=== PATIENT | male | born 1960 | race Caucasian/White ===

== ENCOUNTER 2019-04-03 08:24 | Day surgery (SDC) | payer OTHER ==
[2019-03-28 10:22] VITALS: BMI 30.5
[2019-04-03] MEDS ORDERED: oxyCODONE HCL 10 MG SUSTAINED ACTING TABLET PO STA (08:45)
[2019-04-03] MEDS ORDERED: CEFAZOLIN 2 GM in DEXTROSE 5%-WATER - 100 ML IVPB ONE (08:45)
[2019-04-03] MEDS ORDERED: ONDANSETRON 4 MG/2 ML VIAL IVPUSH PRN ×2 (09:21→14:44)
[2019-04-03] MEDS ORDERED: oxyCODONE HCL 5 MG TABLET PO PRN (09:21)
[2019-04-03] MEDS ORDERED: LACTATED RINGERS SOLUTION 1,000 ML IV SCH ×2 (09:30→14:45)
[2019-04-03] MEDS ORDERED: DEXAMETHASONE SOD PHOSPHATE 4 MG/1 ML VIAL ONE (10:02)
[2019-04-03] MEDS ORDERED: ONDANSETRON 4 MG/2 ML VIAL ONE ×3 (10:02→14:30)
[2019-04-03] MEDS ORDERED: PROPOFOL 20 ML ONE ×5 (10:02→13:03)
[2019-04-03] MEDS ORDERED: SODIUM CHLORIDE 0.9% P/F 10 ML VIAL IJ ONE (10:02)
[2019-04-03] MEDS ORDERED: SUCCINYLCHOLINE CHLORIDE 200 MG/10 ML SYRINGE ONE (10:02)
[2019-04-03] MEDS ORDERED: MIDAZOLAM HCL 2 MG/2 ML SINGLE DOSE VIAL ONE (10:03)
[2019-04-03] MEDS ORDERED: BUPIVACAINE HCL/PF 0.5% (5 MG/ML) 30 ML VIAL IJ ONE (10:03)
[2019-04-03] MEDS ORDERED: GUM MASTIC/STORAX/MSAL/ALCOHOL 1 DRP DROPSBTL MC ONE (11:12)
[2019-04-03] MEDS ORDERED: LIDOCAINE 1%/EPI 1:100000 (20 ML MULTI DOSE VIAL) ONE (11:12)
[2019-04-03] MEDS ORDERED: EPHEDRINE SULFATE/0.9% NACL/PF 50 MG/10 ML SYRINGE NR ONE (11:55)
[2019-04-03] MEDS ORDERED: LIDOCAINE 1%/EPI 1:100000 (20 ML MULTI DOSE VIAL) INF ONE (12:11)
[2019-04-03] MEDS ORDERED: ACETAMINOPHEN INJECTION 100 ML IVPB ONE (13:47)
--- NOTE | 2019-04-03 14:06 | OP ---
DATE OF OPERATION: 04/03/2019 PREOPERATIVE DIAGNOSIS: Cervical stenosis C3-4, C4-5. POSTOPERATIVE DIAGNOSIS: Cervical stenosis C3-4, C4-5. PROCEDURE PERFORMED: 1. Anterior cervical diskectomy and fusion C3-4, anterior cervical diskectomy and fusion C4-5. 2. Placement of instrumentation C3, C4, C5. SURGEON: Willem Marques MD CONSULTING PROJECT DIRECTOR: JENNY Flores ESTIMATED BLOOD LOSS: 50 mL. INTRAVENOUS FLUIDS: Per anesthesia. ANESTHESIA: General/MCP block. COMPLICATIONS: There were none. DISPOSITION: Patient was brought out to the PACU in stable condition. INDICATION FOR SURGERY: Patient is a 59-year-old gentleman who has been suffering from pain from his neck down his arm. X-rays and MRI were completed, which noted that he had herniated disk at C3-4 and C4-5. He had gone through an exhaustive course of treatment for this, which included medications, physical therapy as well as injections. Unfortunately, his pain continued to persist despite all of this. At this point, risks, benefits, and alternatives were discussed, and the patient consented to surgery. DESCRIPTION OF PROCEDURE: Patient was brought to the operating room by anesthesia staff. After appropriate patient identification was performed, general anesthesia was given. MCP block was also given. Patient was placed supine on the OR bed with his arms tucked to the sides. All areas of bony prominences were well-padded at this time. Two needles were placed onto his neck to gilberto off the C3-4 level. X-ray was taken to confirm this was correct. Needle was removed, and 10 mL of lidocaine with epinephrine was injected into his neck at this time. His neck was prepped and draped in a sterile fashion. At this point, a time-out was completed. A 2-inch incision was made on the left side of his neck. Dissection was carried down to the platysma. The platysma was cut in line with the skin incision. Next, the interval between the sternocleidomastoid and strap muscles was developed. Next, the interval between the carotid sheath and trachea and esophagus was developed. Peanuts were used to elevate off the prevertebral fascia. A needle was placed into the C4-5 disk. X-ray was taken to confirm this was correct. Needle was removed, and a Trenton pin was placed into the body of C3 and C5. A knife was used to incise the disks, and distraction was applied. Longus colli muscles were elevated off and retractor blades were placed in. A microscope was brought in. Using a series of pituitaries, Kerrisons, and curettes, a diskectomy was completed. Endplates were decorticated at this time. Cages filled with bone graft were placed into C3-4 and C4-5. A screw was placed into the body of C3, C4, and C5. Trenton pins were removed. AP and lateral x-rays confirmed the instrumentation to be in good position. Final tightening was performed. The platysma was closed with 2-0 Vicryl suture. The skin was closed with 3-0 Monocryl suture. Dermabond was applied. Steri-Strips were applied. A sterile dressing was applied. Patient was placed supine on the OR bed, extubated in the OR, and brought to the PACU in stable condition. Sanchez BARNARD/[id number] MTDD
[2019-04-03] MEDS ORDERED: ACETAMINOPHEN 1000 MG/100 ML VIAL (NON FORMULARY) IVPB ONE (14:30)
[2019-04-03] MEDS ORDERED: diazePAM 5 MG TABLET PO ONE ×2 (14:56→17:46)
[2019-04-03] MEDS ORDERED: oxyCODONE HCL 5 MG TABLET ONE (14:56)
--- NOTE | 2019-04-03 15:03 | OP ---
Operative Note - Note: Operative Date: 04/03/19 Pre-Operative Diagnosis: cervcial stenosis Operation: anterior cervical disecotmy fusion of C3-4 and C4-5 with neuromonitoing and allograft Surgeon: Willem Marques Chopped Strand Operator: Viola Sales Anesthesiologist/BOND ANALYST: Camille Guzman Anesthesia: General Estimated Blood Loss (mls): 10 Operative Report Dictated: Yes
--- NOTE | 2019-04-03 15:25 | SURG ---
Surgery Supervisor [employer]rication And Assembly Note Supervisor Fabrication And Assembly: Viola Sales PA-C Date of Service: 04/03/19 Diagnosis: cervcial stenosis Procedure: anterior cervical disecotmy fusion of C3-4 and C4-5 with neuromonitoing and allograft I was present for the entirety of the operative procedure. For further detail, please refer to operative report. Visit type - Case Type Case Type: Scheduled - Emergency Emergency Visit: No - New patient This patient is new to me today: Yes Date on this admission: 04/03/19
[2019-04-03] MEDS: INSULIN SLIDING SCALE (NOVOLOG) 1 VIAL SQ SCH ×2 (16:30→23:21)
[2019-04-03] MEDS: DOCUSATE SODIUM 100 MG CAPSULE (FP) PO SCH (21:01)
[2019-04-03] MEDS: DEXAMETHASONE SOD PHOSPHATE 4 MG/1 ML VIAL IVPUSH SCH (21:01)
[2019-04-03] MEDS: CEFAZOLIN 1 GM/D5W 1 GRAM/50 ML BAG IVPB SCH (21:01)
[2019-04-03] MEDS: ACETAMINOPHEN 325 MG TABLET (FP) PO SCH (21:02)
[2019-04-03] MEDS: oxyCODONE HCL 5 MG TABLET PO PRN (21:02)
[2019-04-03] MEDS ORDERED: metFORMIN HCL 500 MG TABLET (FP) PO SCH (22:00)
[2019-04-04] MEDS: DEXAMETHASONE SOD PHOSPHATE 4 MG/1 ML VIAL IVPUSH SCH (03:15)
[2019-04-04] MEDS: CEFAZOLIN 1 GM/D5W 1 GRAM/50 ML BAG IVPB SCH (03:15)
[2019-04-04] MEDS: ACETAMINOPHEN 325 MG TABLET (FP) PO SCH ×2 (03:20→08:15)
[2019-04-04] MEDS: oxyCODONE HCL 5 MG TABLET PO PRN ×2 (03:21→09:19)
[2019-04-04] MEDS: diazePAM 2 MG TABLET PO PRN ×2 (03:23→09:19)
[2019-04-04 06:17] VITALS: BP 112/67; PULSE 81; TEMP 98.7
[2019-04-04] MEDS: INSULIN SLIDING SCALE (NOVOLOG) 1 VIAL SQ SCH (06:46)
[2019-04-04] MEDS ORDERED: sitaGLIPtin PHOSPHATE 50 MG TABLET PO SCH (07:00)
--- NOTE | 2019-04-04 07:54 | PN ---
Progress Note (short form) - Note Progress Note: POD 1, s/p anterior cervical discectomy fusion of C3-4 and C4-5 with neuromonitoring and allograft Pt seen and examined. Reports no issues overnight. Has been oob to the restroom. Tolerating PO, no n/v. Voiding without issue. denies cp/sob, motor/ sensory deficits, h/a, dizziness. Vital Signs Temp 98.7 F 04/04/19 06:00 Pulse 81 04/04/19 06:00 Resp 18 04/04/19 06:00 BP 112/67 04/04/19 06:00 Pulse Ox 96 04/04/19 06:00 Intake & Output 04/03/19 04/03/19 04/04/19 11:59 23:59 11:59 Intake Total 1675 900 Output Total 10 Balance 1665 900 Weight 195 lb Intake: IV 1325 450 Lactated Ringers Solution 375 1,000 ml @ 125 mls/hr IV ASDIR MAY Rx#: [id number] Lactated Ringers Solution 450 1,000 ml @ 75 mls/hr IV ASDIR MAY Rx#:[id number] IVPB 100 Oral 350 350 Output: Estimated Blood Loss 10 Other: Voiding Method Urinal # Unmeasured Voids Void 400 Height 5 ft 7 in Body Mass Index (BMI) 30.5 Weight Measurement Method Stated by Patient Gen: awake, alert, nad. Resp: unlabored on RA Neck: soft collar in place, removed, dressing c/d/i, trace surrounding edema, no ecchymosis. Pt speaking in full sentences without any issues. Neuro: B/L UE tracer lathe set up operator strength weak R>L (stable from prior to surgery per pt), 4+/ 5 biceps/triceps, shoulder shrug intact. Sensation diminished in b/l hands ( stable from prior to surgery per pt), sensation intact in b/l forearms/upper extremities. A/P: 59 y/o M w/ PMHx htn, hld, IDDM (on insulin pump), cervical stenosis, now POD 1, s/p anterior cervical discectomy fusion of C3-4 and C4-5 with neuromonitoring and allograft. VSS Neuro exam stable Pain controlled -Plan for d/c this AM -D/c instructions reviewed with pt, pt verbalized understanding d/w attending Dr Marques
[2019-04-04] MEDS: DOCUSATE SODIUM 100 MG CAPSULE (FP) PO SCH (09:19)
[2019-04-04] MEDS ORDERED: LISINOPRIL 5 MG TABLET (FP) PO SCH (10:00)
[2019-04-04] MEDS ORDERED: PATIENT'S OWN MEDICATION (NON-FORMULARY) (Pravastatin Sodium 20 MG) PO SCH (10:00)
[2019-04-04] MEDS ORDERED: ATORVASTATIN CA 10 MG TABLET (FP) PO SCH (10:00)
== END 2019-04-04 10:55 | disposition home or self-care (01) ==
LOC: FASU 08:24 → FM/S 15:27 → FASU 04-04 10:55
PROVIDERS: ATTEND Orthopaedic Surgery Orthopaedic Surgery of the Spine
PROC: 0RG10A0 Fusion of Cervical Vertebral Joint with Interbody Fusion Device, Anterior Approach, Anterior Column, Open Approach (ICD-10-PCS; 2019-04-03)
PROC: 0RG10K0 Fusion of Cervical Vertebral Joint with Nonautologous Tissue Substitute, Anterior Approach, Anterior Column, Open Approach (ICD-10-PCS; 2019-04-03)
PROC: 0RB30ZZ Excision of Cervical Vertebral Disc, Open Approach (ICD-10-PCS; principal; 2019-04-03 12:25)
DX: M48.02 Spinal stenosis, cervical region (principal)
CPT/HCPCS: 22551; 22552; 22845; 22853; C1889; 72050-TC-FY; 82962; 94760; 97116-GP; 97162-GP; J0131